=== PATIENT | male | born 1965 | race Caucasian/White ===

== ENCOUNTER 2021-12-02 07:02 | Inpatient (IN) | payer BC ==
[2021-12-02] MEDS ORDERED: NITROGLYCERIN SL TABS 0.4 MG TAB SUBLINGUAL PRN ×2 (07:07→09:27)
[2021-12-02] MEDS ORDERED: HEPARIN SODIUM 1,000 UN/ML (10ML VL) IV PRN (07:09)
[2021-12-02] MEDS ORDERED: HEPARIN SODIUM 1,000 UN/ML (10ML VL) IV ONE (07:09)
--- NOTE | 2021-12-02 07:11 | ED ---
Chest Pain HPI - General Stated Complaint: STEMI Time Seen by Provider: 12/02/21 07:07 Source: EMS Mode of arrival: EMS - History of Present Illness Initial Comments: This patient is a 56-year-old man who presents by ambulance with complaint of chest tightness. Patient states that he had noted symptoms a little over an hour ago. When the symptoms persisted they called the ambulance. EMS had called with concerns about STEMI and a transmitted an ECG by telemetry. On receiving the ECG the Hydroponics Worker was activated. Patient states that chest pain woke him. It is a tightness. It was initially moderately severe but after one sublingual nitroglycerin by EMS the pain is down to 2 out of 10. He has a little bit of nausea. MD Complaint: chest pain -: hour(s) Onset: awoke with symptoms Pain Location: left chest Severity: moderate Severity scale (1-10): 2 Quality: tightness Consistency: constant, now resolved (Partially) Improves With: nitroglycerin Anginal Symptoms: nausea Treatments Prior to Arrival: aspirin, nitroglycerin, oxygen - Related Data Allergies Allergy/AdvReac Type Severity Reaction Status Date / Time Unable to Assess Allergy Verified 12/02/21 07:12 Review of Systems ROS Statement: Those systems with pertinent positive or pertinent negative responses have been documented in the HPI. ROS Other: All systems not noted in ROS Statement are negative. Constitutional: Denies: fever, chills Respiratory: Reports: dyspnea. Denies: cough Cardiovascular: Reports: chest pain. Denies: palpitations, edema, syncope Gastrointestinal: Reports: nausea. Denies: abdominal pain, vomiting, diarrhea Genitourinary: Denies: dysuria, hematuria Musculoskeletal: Denies: back pain Skin: Denies: rash Neurological: Denies: headache, weakness EKG Findings - EKG Comments: EKG Findings:: Underlying rhythm appears to be junctional alternating with sinus, the rate initially [address] elevations in the inferior leads with reciprocal changes laterally. - EKG Results: EKG: interpreted by ERMD, normal axis - ME, Pacemaker, Normal: Myocardial infarction: inferior ME (acute or recent) Past Medical History Past Medical History: Hypertension History of Any Multi-Drug Resistant Organisms: None Reported Past Surgical History: No Surgical Hx Reported Past Psychological History: No Psychological Hx Reported Smoking Status: Current every day smoker Past Alcohol Use History: Occasional Past Drug Use History: Marijuana General Exam General appearance: alert, in no apparent distress Head exam: Present: atraumatic, normocephalic Eye exam: Present: normal appearance. Absent: scleral icterus, conjunctival injection ENT exam: Present: normal oropharynx Neck exam: Present: normal inspection Respiratory exam: Present: normal lung sounds bilaterally. Absent: respiratory distress, wheezes, rales, rhonchi, stridor Cardiovascular Exam: Present: regular rate, normal rhythm, normal heart sounds. Absent: systolic murmur, diastolic murmur, rubs, gallop GI/Abdominal exam: Present: soft, distended, tenderness, guarding, rebound, rigid, mass Extremities exam: Present: normal inspection, normal capillary refill. Absent: pedal edema, calf tenderness Back exam: Present: normal inspection Neurological exam: Present: alert Skin exam: Present: warm, dry, intact, normal color. Absent: rash Course Vital Signs 12/02/21 12/02/21 12/02/21 07:03 07:25 07:45 Temperature 97.8 F Pulse Rate 87 74 74 Respiratory 18 18 18 Rate Blood Pressure 154/90 107/74 104/67 O2 Sat by Pulse 97 97 96 Oximetry Chest Pain MDM - MDM Patient's 56-year-old man with acute onset of chest tightness this morning. Patient appears to be having ST elevation ME. The metallurgy laboratory technician was activated based on the EMS telemetry ECG. Case was then discussed with Dr. Lazo who is on- call, followed by Dr. Morton. The patient is seen and evaluated, orders are entered. Case discussed with hospitalist team for admission. Critical Care Time Critical Care Time: Yes (30 minutes) Disposition Clinical Impression: ST elevation myocardial infarction (STEMI) Disposition: ADMITTED IP TO THIS HOSP Condition: Critical Is patient prescribed a controlled substance at d/c from ED?: No
[2021-12-02] MEDS: HEPARIN SOD,PORK IN 0.45% NACL 25,000 UNIT in 0.45% NACL 1 250ML.BAG IV SCH ×2 (07:18→19:25)
[2021-12-02] MEDS ORDERED: ATORVASTATIN 80 MG TAB PO STA (07:23)
--- NOTE | 2021-12-02 07:36 | XR ---
EXAMINATION TYPE: XR chest 1V portable DATE OF EXAM: 12/02/2021 COMPARISON: NONE HISTORY: Chest pain TECHNIQUE: Single frontal view of the chest is obtained. FINDINGS: There is no pleural effusion or pneumothorax seen. Technique is apical lordotic. Density a buts the right heart border, possible obscured medial aspect of the right hemidiaphragm. The cardiac silhouette size is enlarged. There are overlying artifacts. The osseous structures are intact. IMPRESSION: Suspect cardiomegaly, difficult to exclude basilar airspace disease versus atelectasis, follow-up PA and lateral chest x-ray suggested when patient is stable.
[2021-12-02 07:39] LABS: Albumin 4.2 g/dL (3.5-5.0); Magnesium 2.3 mg/dL (1.6-2.3); Potassium 3.9 mmol/L (3.5-5.1); Total Bilirubin 0.4 mg/dL (0.2-1.3); Total Protein 7.3 g/dL (6.3-8.2)
[2021-12-02 07:42] LABS: INR 0.8 (<1.2); Partial Thromboplastin Time 24.6 sec (22.0-30.0); Prothrombin Time 9.5 sec (9.0-12.0)
[2021-12-02] MEDS ORDERED: LIDOCAINE 1% INJ 10MG/ML (20 ML MDV) SQ ONE (07:44)
[2021-12-02] MEDS ORDERED: MIDAZOLAM 2 MG/2 ML VIAL IV ONE (07:44)
[2021-12-02] MEDS ORDERED: CLOPIDOGREL 75 MG TAB ONE (07:50)
[2021-12-02] MEDS ORDERED: HEPARIN SODIUM 1,000 UN/ML (10ML VL) ONE (07:52)
[2021-12-02 07:56] LABS: Basophils # (A) 0.1 k/uL (0-0.2); Basophils % (A) 1 %; Eosinophils # (A) 0.1 k/uL (0-0.7); Eosinophils % (A) 2 %; HGB 16.2 gm/dL (13.0-17.5); Lymphocytes # (A) 2.3 k/uL (1.0-4.8); Lymphocytes % (A) 30 %; MCH 31.6 pg (25.0-35.0); MCHC 33.1 g/dL (31.0-37.0); MCV 95.2 fL (80.0-100.0); Mean Platelet Volume 8.5; Monocytes # (A) 0.4 k/uL (0-1.0); Monocytes % (A) 5 %; Neutrophils # (A) 4.6 k/uL (1.3-7.7); Neutrophils % (A) 60 %; Platelet Count 245 k/uL (150-450); RBC 5.15 m/uL (4.30-5.90); RDW 13.3 % (11.5-15.5); WBC 7.6 k/uL (3.8-10.6)
[2021-12-02] MEDS ORDERED: CLOPIDOGREL 75 MG TAB PO ONE (08:07)
[2021-12-02] MEDS ORDERED: IV FLUID CONTINUATION 500 ML IV ONE (08:08)
[2021-12-02] MEDS: fentaNYL (PF) 50 MCG/ML 2 ML AMP IV ONE ×2 (08:08→08:26)
[2021-12-02] MEDS ORDERED: fentaNYL (PF) 50 MCG/ML 2 ML AMP ONE (08:09)
[2021-12-02] MEDS ORDERED: IOPAMIDOL-370 125ML BTL INJ ONE ×2 (08:19→08:56)
[2021-12-02 08:59] LABS: O2 Sat Blood Gas 63.3 %; O2 Sat Blood Gas 97.5 %
[2021-12-02 09:08] LABS: O2 Sat Blood Gas 65.7 %
[2021-12-02] MEDS ORDERED: ATROPINE SULFATE 0.1 MG/ML 10ML SYRINGE IV PRN (09:27)
[2021-12-02] MEDS ORDERED: RX INFO: IV CONTRAST WAS GIVEN 1 EACH MISC MISCELLANE PRN (09:27)
[2021-12-02] MEDS ORDERED: ZOLPIDEM 5 MG TAB PO PRN (09:27)
[2021-12-02] MEDS ORDERED: MAG HYDROX/AL HYDROX/SIMETH 30 ML CUP PO PRN (09:27)
--- NOTE | 2021-12-02 09:27 | P.PRCINT ---
Percutaneous Coronary Int. - Percutaneous Coronary Intervention Percutaneous Coronary Intervention: PROCEDURES PERFORMED: Left coronary angiography, PCI circumflex with a 4.0 x 15mm Xience BRENTON, post dilated with a 5.0 x 12, right heart catheterization INDICATION: Inferior STEMI HISTORY: Patient is a 56-year-old male with history of tobacco abuse and questionable septal defect as well as hypertension and hyperlipidemia who presented with chest pain which woke him out of his sleep at approximately 3 AM. He had a diagnostic heart catheterization performed which showed a dominant circumflex 100% occluded. I was therefore asked to perform PCI. CONSENT:I have discussed the risks, benefits and alternative therapies for the above-mentioned procedure and for both sedation/analgesia as well as necessary blood product administration, if indicated, as they pertain to this patient. The patient has indicated understanding and acceptance of the risks and procedures discussed. PROCEDURE: After the risks, benefits and alternatives of the above mentioned procedure explained in detail with the patient, informed consent was obtained. Patient had been taken to the catheterization lab and prepped and draped in usual fashion. A 6-Estonian sheath had already been placed in the right femoral artery. A 6-Estonian CLS 3.5 guide was used to engage the left main. Heparin was given for ACT greater than 250. A 0.014 BMW wire was advanced until the distal circumflex. The lesion was predilated with a 2.5 x 12 mm balloon. Next a 4.0 x 15 mm Xience BRENTON was placed. This was postdilated with a 5.0 x 12 mm balloon. Preintervention there is CYNDEE 0 flow and 100% stenosis and post intervention there was CYNDEE-3 flow with 0% stenosis. The wire was pulled and final angiograms were performed. A 6-Estonian pigtail was placed in the left ventricle and pressure measurements were obtained. Pullback was performed. Patient was noted to have some hypotension despite re-zeroing of equipment. Therefore the decision was made to perform a right heart catheterization. Using ultrasound guidance and micropuncture technique and a 8-Estonian sheath was placed in the right femoral vein. A 7-Estonian Ripley-Latrell catheter was advanced of the right atrium, right ventricle, pulmonary artery and pulmonary capillary wedge pressure with pressure measurements obtained. We attempted thermodilution however variable results which did not appear accurate. Oxygen saturations were drawn in the pulmonary artery, right atrium and femoral artery for Jackeline calculations. There was noted a somewhat loose connection in the tubing system and after adjustment pressure appeared to improve. Low pressures may have been a result of equipment however also noted to improvement with IV fluids. A right femoral angiogram showed adequate anatomy for closure and a 6-Estonian Angio-Seal was placed with hemostasis achieved. The patient tolerated the procedure well. Patient was transported back to the post catheterization holding area in stable condition. Conscious Sedation: Patient was monitored under the direct supervision of vision of myself for conscious sedation using Versed and fentanyl for a total duration of 61 minutes RIGHT HEART CATHETERIZATION: RA: 21 RV: 36/12 PA: 43/29 PCWP: 29 (may have been inaccurate from tubing connection) LV: 100/10, LVEDP 17 RA oxygen sat: 66% PA oxygen sat: 63% FA oxygen sat: 98% Cardiac outpt: 5.01 L/min Cardiac index: 2.17 L/min/m2 SELECTIVE CORONARY ARTERIOGRAPHY: LEFT MAIN: The left main is a large caliber vessel which bifurcates into the LAD and circumflex. There is no significant stenosis. LEFT ANTERIOR DESCENDING CORONARY ARTERY: LAD is a large caliber vessel which wraps around to the apex. There are minimal luminal irregularities. LEFT CIRCUMFLEX CORONARY ARTERY: Left circumflex is a large caliber vessel dominant vessel which supplies the PDA. There is a 100% stenosis after a moderate caliber OM1 and otherwise mild 30% stenosis of the PDA. RIGHT CORONARY ARTERY: The right coronary artery was not imaged however noted to be small to moderate caliber and nondominant. FINAL IMPRESSION: 1. CAD as described above with successful PCI dominant circumflex with a 4.0 x 15mm Xience BRENTON, post dilated with a 5.0 x 12 2. Hypotension noted during case, improved after case with some IV fluids. May have been measurement error related to tubing connection however corresponded closely with cuff pressure. 3. Low normal cardiac output. cardiac index PLAN: 1. Aggressive risk factor modification per most recent ACC/AHA guidelines. 2. Continue dual antiplatelets for 12 months.
--- NOTE | 2021-12-02 09:36 | P.CRDCN ---
History of Present Illness Consult date: 12/02/21 History of present illness: 56-year-old gentleman with history of dyslipidemia and smoking presented to hospital with sudden onset chest pain. His chest discomfort developed around 3:00 this morning. Progressively got worse. Moderate to severe intensity precordial 8 out of 10 intensity. He had an EKG in the field and EMS faxed it to ER and there was acute inferior wall myocardial infarction following which STEMI team was alerted. Patient came to the ER around 7:00 around 705 he had an EKG that confirmed the acute inferior wall myocardial infarction and I saw the patient in the emergency room very expeditiously at 707. I advised the patient to undergo emergent cardiac catheterization he was hemodynamically stable was in atrial fibrillation with somewhat of a slow ventricular rate and had evidence of inferior wall myocardial infarction. I gave him IV fluids. Continued him on IV heparin and advised him to go to the dairy laboratory technician. Patient will undergo emergent cardiac catheterization and primary angioplasty . Constitutional: Denies chills. Denies fever. Eyes: Denies blurred vision. Denies pain. Ears, nose, mouth and throat: Denies headache. Denies sore throat. Cardiovascular: Significant for chest pain Denies shortness of breath. Respiratory: Denies cough. Gastrointestinal: Denies abdominal pain. Denies diarrhea. Denies nausea. Denies vomiting. Musculoskeletal: Denies myalgias. Integumentary: Denies pruritus. Denies rash. Neurological: Denies numbness. Denies weakness. Psychiatric: Denies anxiety. Denies depression. Endocrine: Denies fatigue. Denies weight change. Genitourinary: Denies burning, hematuria, frequency of urination. Hematological: No anemia or excess bleeding. General: The patient is awake and alert, in no distress, and does not appear acutely ill. Skin: Skin is warm and dry and no rashes or lesions are noted. Eye: Pupils are equal, round and reactive to light, extra-ocular movements are intact; there is normal conjunctiva bilaterally. Ears, nose, mouth and throat: There are moist mucous membranes and no oral lesions. Neck: The neck is supple, there is no tenderness or JVD. Cardiovascular: There is a regular rate and rhythm. No murmur, rub or gallop is appreciated. Respiratory: Lungs are clear to auscultation, respirations are non-labored, breath sounds are equal. Gastrointestinal: Soft, non-distended, non-tender abdomen without masses or organomegaly noted. There is no rebound or guarding present. Bowel sounds are unremarkable. Back: There is no tenderness to palpation in the midline. There is no obvious deformity. Musculoskeletal: Normal ROM, no tenderness, There is no pedal edema. There is no calf tenderness or swelling. Extremities: No edema. Vascular: Femoral pulse is normal. Posterior tibial pulses are normal .Dorsalis pedis is palpable. Neurological: CN II-XII intact. There are no obvious motor or sensory deficits. Speech is normal. Psychiatric: Cooperative, appropriate mood & affect, normal judgment. Assessment and plan: Acute inferior wall myocardial infarction New onset atrial fibrillation History of smoking History of dyslipidemia Plan Patient will undergo emergent cardiac catheterization and angioplasty understands risk benefits Past Medical History Past Medical History: Hypertension History of Any Multi-Drug Resistant Organisms: None Reported Past Surgical History: No Surgical Hx Reported Past Psychological History: No Psychological Hx Reported Smoking Status: Current every day smoker Past Alcohol Use History: Occasional Past Drug Use History: Marijuana Medications and Allergies Allergies Allergy/AdvReac Type Severity Reaction Status Date / Time Unable to Assess Allergy Verified 12/02/21 07:12 Physical Exam Vitals: Vital Signs Temp Pulse Resp BP Pulse Ox 12/02/21 07:45 74 18 104/67 96 12/02/21 07:25 74 18 107/74 97 12/02/21 07:03 97.8 F 87 18 154/90 97 Intake and Output 12/01/21 12/02/21 12/02/21 22:59 06:59 14:59 Intake Total 500 Balance 500 Intake: IV 500 Other: Weight 116.573 kg Results 12/02/21 07:18 12/02/21 07:18 Cardiac Enzymes 12/02/21 12/02/21 Range/Units 07:18 07:18 AST 27 (17-59) U/L Troponin I 0.042 H* (0.000-0.034) ng/mL Coagulation 12/02/21 Range/Units 07:18 PT 9.5 (9.0-12.0) sec APTT 24.6 (22.0-30.0) sec CBC 12/02/21 Range/Units 07:18 WBC 7.6 (3.8-10.6) k/uL RBC 5.15 (4.30-5.90) m/uL Hgb 16.2 (13.0-17.5) gm/dL Hct 49.0 (39.0-53.0) % Plt Count 245 (150-450) k/uL Comprehensive Metabolic Panel 12/02/21 Range/Units 07:18 Sodium 144 (137-145) mmol/L Potassium 3.9 (3.5-5.1) mmol/L Chloride 106 (98-107) mmol/L Carbon Dioxide 27 (22-30) mmol/L BUN 20 (9-20) mg/dL Creatinine 1.22 (0.66-1.25) mg/dL Glucose 169 H (74-99) mg/dL Calcium 9.0 (8.4-10.2) mg/dL AST 27 (17-59) U/L ALT 37 (4-49) U/L Alkaline Phosphatase 77 (38-126) U/L Total Protein 7.3 (6.3-8.2) g/dL Albumin 4.2 (3.5-5.0) g/dL Current Medications Generic Name Dose Route Start Last Admin Trade Name Freq PRN Reason Stop Dose Admin Al Hydroxide/Mg Hydroxide 30 ml 12/02/21 09:27 Mag Hydrox/Al Hydrox/Simeth 30 Ml Cup PO Q4HR PRN Heartburn Aspirin 81 mg 12/03/21 09:00 Aspirin 81 Mg PO DAILY [facility] Atropine Sulfate 0.5 mg 12/02/21 09:27 Atropine Sulfate 0.1 Mg/Ml 10ml Syringe IV ONCE PRN Symptomatic Bradycardia Clopidogrel Bisulfate 75 mg 12/03/21 09:00 Clopidogrel 75 Mg Tab PO DAILY [facility] Protocol Heparin Sodium (Porcine) 0 unit 12/02/21 07:09 Heparin Sodium 1,000 Un/Ml (10ml Vl) IV PER PROTOCOL PRN Low PTT Protocol Heparin Sodium/Sodium Chloride 250 mls @ 10 mls/hr 12/02/21 07:15 12/02/21 07:18 25,000 unit/ Sodium Chloride IV 8.578 units/kg/hr .Q24H RAHEEL 10 mls/hr Administration Protocol 8.578 UNITS/KG/HR Sodium Chloride 1,000 ml/ IV 1,000 mls @ 116.573 mls/hr 12/02/21 09:30 Solution IV .Q8H35M RAHEEL 1 ML/KG/HR Metoprolol Tartrate 25 mg 12/02/21 21:00 Metoprolol Tartrate 25 Mg Tab PO BID RAHEEL Miscellaneous Information 1 each 12/02/21 09:27 Rx Info: Iv Contrast Was Given 1 Each Misc MISCELLANE 12/04/21 09:27 DAILY PRN Per Protocol Nitroglycerin 0.4 mg 12/02/21 07:07 Nitroglycerin Sl Tabs 0.4 Mg Tab SUBLINGUAL Q5M PRN Chest Pain Nitroglycerin 0.4 mg 12/02/21 09:27 Nitroglycerin Sl Tabs 0.4 Mg Tab SUBLINGUAL Q5M PRN Chest Pain Zolpidem Tartrate 5 mg 12/02/21 09:27 Zolpidem 5 Mg Tab PO HS PRN Insomnia Intake and Output 12/01/21 12/02/21 12/02/21 22:59 06:59 14:59 Intake Total 500 Balance 500 Intake: IV 500 Other: Weight 116.573 kg Patient Weight 12/03/21 06:59 Weight 116.573 kg 12/02/21 07:18 12/02/21 07:18
[2021-12-02 09:50] LABS: Glucose,Whole Blood 118 mg/dL (75-99)
--- NOTE | 2021-12-02 10:23 | CC ---
CARDIAC CATHETERIZATION REPORT INDICATION: Acute inferior wall myocardial infarction. This is a 56-year-old gentleman who presented to hospital with acute inferior wall [place] and was advised to undergo emergent cardiac catheterization and primary angioplasty. His EKG in the emergency room was performed at 7:05. I saw the patient somewhere around 7:07 to 7:10 and proceeded to perform cardiac catheterization on him. His vascular access was obtained and cardiac catheterization was finished in 11 minutes as soon as the helper animal laboratory was ready for me. PROCEDURE NOTE: After obtaining informed consent, left heart catheterization and coronary angiogram were performed via the right femoral artery using standard Niesha catheters. Patient tolerated the procedure well without any obvious immediate complications. The left coronary artery was engaged using a size 3.[address] Morton. We could not engage the left with a size 4 catheter. Right coronary artery was engaged using a size 4 Niesha catheter and left ventricular end-diastolic pressures were obtained with a pigtail catheter. Moderate conscious sedation was given and total sedation time was 11 minutes. FINDINGS: HEMODYNAMICS: Left ventricular end-diastolic pressure is 18 mm. There is no significant gradient across the aortic valve. LEFT VENTRICULOGRAM: Left ventriculogram was not performed. ANGIOGRAPHIC DATA: Left main coronary artery. Left main coronary artery is a short vessel and free of stenosis. It divides into left anterior descending coronary artery and circumflex coronary artery. LAD and its branches are free of significant stenosis. Circumflex coronary artery appears totally occluded past branch. Right coronary artery is a small nondominant vessel and is free of significant disease. CONCLUSIONS: Acutely occluded [place] circumflex coronary artery which is responsible for the acute inferoposterior wall myocardial infarction. PLAN: Patient will undergo angioplasty with stent placement of the same. Need fluids and will avoid nitrates because of possible RV infarct. MMODL / IJN: [id number] /
[2021-12-02] MEDS ORDERED: ONDANSETRON 4 MG/2 ML VIAL IVP PRN (12:10)
[2021-12-02] MEDS ORDERED: NALOXONE 0.4 MG/ML 1 ML VIAL IV PRN (12:10)
[2021-12-02] MEDS ORDERED: ALPRAZolam 0.25 MG TAB PO PRN (12:10)
[2021-12-02] MEDS ORDERED: MELATONIN 3 MG TABLET PO PRN (12:10)
[2021-12-02] MEDS ORDERED: ACETAMINOPHEN TAB 325 MG TAB PO PRN (12:10)
[2021-12-02] MEDS ORDERED: HYDROcodone/APAP 5-325MG 1 EACH TAB PO PRN (12:10)
--- NOTE | 2021-12-02 12:15 | P.HPIM ---
History of Present Illness H&P Date: 12/02/21 Chief Complaint: chest pain Patient is a 56 yo CM with a hx of HTN, Tobacco abuse, and obesity who presented to the ED with chest pain. He was found to have inferior wall STEMI. He underwent emergent cardiac cath with a stent to circ. He was also found to have A Fib. Patient seen at bedside. Currently chest pain free. No shortness of breath, no nausea and tolerating a diet well Woke up and was unable to catch his breath and shoulder/chest had a heavy weight, willy cold but was very diaphoretic. Was at home with chest pain about 1 hour before calling EMS. No recent illness. No hx of COVID in the past. No prior hx of A fib. Had a septal defect at which corrected by age 14. Pertinent positives and negatives as discussed in HPI, a complete review of systems was performed and all other systems are negative. General: non toxic, no distress, appears at stated age Derm: warm, dry Head: atraumatic, normocephalic, symmetric Eyes: EOMI, no lid lag, anicteric sclera, pupils equal round reactive to light ENT: Nose and ears atraumatic, no thrush, no pharyngeal erythema Neck: No thyromegaly, no cervical lymphadenopathy, trachea midline, supple Mouth: no lip lesion, mucus membranes moist Cardiovascular: S1S2 reg, no murmur, positive posterior tibial pulse bilateral, no edema, capillary refill less than 2 seconds Lungs: clear to ascultation bilateral, no ronchi, no rales, no wheeze, no accessory muscle use Abdominal: soft, nontender to palpation, no guarding, no appreciable organomegaly, normal bowel sounds Ext: no gross muscle atrophy, muscle strength muscle strength 5 out of 5 in all 4 extremities, no contractures Neuro: CN II-XI grossly intact, light touch intact all 4 extremities, finger to nose within normal limits, Psych: Alert, oriented, appropriate affect Assessment/Plan: STEMI s/p stent to the CIR P. A. fib - plavix, ASA, lopressor - hepatin gtt planned 8 hours after sheeth removed. - check lipid profile and A1C HTN, controlled - BB HDL - Liptior Morbid obesity BMI 36.9 - outpatient structured weight loss Tobacco abuse - structured outpatient weight loss The patient is admitted with an anticipated greater than 2 midnight stay for evaluation of STEMI. CODE STATUS:full DVT prophylaxis: Heparin Discussed with: patient, nursing Anticipated discharge date: [address]: home A total of 65 minutes was spent on the care of this complex patient more than 50% of the time was spent in counseling and care coordination. Past Medical History Past Medical History: Hyperlipidemia, Hypertension (white coat HTN) Additional Past Medical History / Comment(s): Hx cardiac septal defect as a chi ld History of Any Multi-Drug Resistant Organisms: None Reported Additional Past Surgical History / Comment(s): vocal cord surgery Past Psychological History: No Psychological Hx Reported Smoking Status: Current every day smoker (1 ppd) Past Alcohol Use History: Occasional Past Drug Use History: Marijuana - Past Family History mother Family Medical History: Myocardial Infarction (HI) (HI over the age of 70) Medications and Allergies Home Medications Medication Instructions Recorded Confirmed Type Atorvastatin [Lipitor] 10 mg PO DAILY@0200 12/02/21 12/02/21 History Nebivolol HCl [Bystolic] 10 mg PO DAILY@0200 12/02/21 12/02/21 History Allergies Allergy/AdvReac Type Severity Reaction Status Date / Time codeine AdvReac Abdominal Verified 12/02/21 09:43 Pain Physical Exam Osteopathic Statement: *. No significant issues noted on an osteopathic structu ral exam other than those noted in the History and Physical/Consult. Vitals: Vital Signs Temp Pulse Resp BP Pulse Ox 12/02/21 10:00 64 10 L 113/95 98 12/02/21 09:50 65 12 97 12/02/21 09:44 96.6 F L 64 13 96 12/02/21 07:45 74 18 104/67 96 12/02/21 07:25 74 18 107/74 97 12/02/21 07:03 97.8 F 87 18 154/90 97 Intake and Output 12/01/21 12/02/21 12/02/21 22:59 06:59 14:59 Intake Total 570 Output Total 0 Balance 570 Intake: IV 570 0.9 50 R groin sheath 0.9 20 Output: Urine 0 Other: # Voids 0 Weight 116.573 kg Results CBC & Chem 7: 12/02/21 07:18 12/02/21 07:18 Labs: Abnormal Lab Results - Last 24 Hours (Table) 12/02/21 12/02/21 12/02/21 Range/Units 07:18 07:18 09:49 Glucose 169 H (74-99) mg/dL POC Glucose (mg/dL) 118 H (75-99) mg/dL Troponin I 0.042 H* (0.000-0.034) ng/mL
[2021-12-02] MEDS: SODIUM CHLORIDE 0.9% 1,000 ML in EMPTY BAG 1 BAG IV SCH (12:19)
--- NOTE | 2021-12-02 13:59 | ECHOF ---
Referral Reason:stemi MEASUREMENTS -------- HEIGHT: 152.4 cm WEIGHT: 116.6 kg BP: RVIDd: 3.4 cm (< 3.3) IVSd: 1.6 cm (0.6 - 1.1) LVIDd: 4.9 cm (3.9 - 5.3) LVPWd: 1.4 cm (0.6 - 1.1) IVSs: 1.5 cm LVIDs: 4.0 cm LVPWs: 1.5 cm LA Diam: 4.0 cm (2.7 - 3.8) MV EXCURSION: 23.861 mm (> 18.000) MV EF SLOPE: 118 mm/s (70 - 150) EPSS: 1.1 cm MV E Jakub: 0.63 m/s MV DecT: 181 ms MV A Jakub: 0.76 m/s MV E/A Ratio: 0.83 RAP: 5.00 mmHg RVSP: 18.70 mmHg FINDINGS -------- Sinus rhythm. This was a techncally difficult study with suboptimal views, , Definity utilized for enhancement of i mages. The left ventricular size is normal. There is mild concentric left ventricular hypertrophy. Overa ll left ventricular systolic function is mild-moderately impaired with, an EF between 40 - 45 %. In ferior Hypokinesis Posterior Hypokinesis. The right ventricle is normal in size. The left atrial size is normal. The right atrial size is normal. Lumason used There is mild aortic valve sclerosis. There is no evidence of aortic regurgitation. Mild mitral regurgitation is present. Mild tricuspid regurgitation present. Right ventricular systolic pressure is normal at < 35 mmHg. The pulmonic valve was not well visualized. Echo free space indicative of a pericardial fat pad. CONCLUSIONS -------- 1. This was a techncally difficult study with suboptimal views, , Definity utilized for enhancement o f images. 2. The left ventricular size is normal. 3. There is mild concentric left ventricular hypertrophy. 4. Overall left ventricular systolic function is mild-moderately impaired with, an EF between 40 - 45 %. 5. Inferior Hypokinesis 6. Posterior Hypokinesis. 7. The right ventricle is normal in size. 8. The left atrial size is normal. 9. The right atrial size is normal. 10. Lumason used 11. There is mild aortic valve sclerosis. 12. Mild mitral regurgitation is present. 13. Mild tricuspid regurgitation present. 14. The pulmonic valve was not well visualized. 15. Echo free space indicative of a pericardial fat pad. HYDROELECTRIC MACHINERY MECHANIC HELPER: Anh Suazo RDCS
[2021-12-02 18:16] LABS: Glucose,Whole Blood 123 mg/dL (75-99)
[2021-12-02] MEDS: METOPROLOL TARTRATE 25 MG TAB PO SCH (20:50)
[2021-12-03] MEDS: NICOTINE 21MG/24HR PATCH TRANSDERM SCH (06:21)
[2021-12-03] MEDS: SODIUM CHLORIDE 0.9% 1,000 ML in EMPTY BAG 1 BAG IV SCH ×2 (07:53→07:54)
--- NOTE | 2021-12-03 08:00 | P.PN ---
Subjective Progress Note Date: 12/03/21 Principal diagnosis: Acute coronary syndrome The patient is a pleasant 56-year-old gentleman with a smoking who was admitted to the hospital with a chest discomfort and was diagnosed with acute coronary syndrome. He underwent an emergent heart catheterization that revealed occluded left circumflex which was stented. He was seen this morning. He is asymptomatic. He reports no pain in the chest or shortness of breath. He has been maintaining normal sinus mechanism with he modynamically he is stable. The right groin is soft and nontender and without any bruises. He is on dual antiplatelet therapy along with high intensity statin. The patient can be transferred to the selective unit for potential discharge home in the next 24-48 hours. Objective - Vital Signs Vital signs: Vital Signs Temp 98 F 12/03/21 04:30 Pulse 63 12/03/21 07:00 Resp 13 12/03/21 07:00 BP 119/89 12/03/21 07:00 Pulse Ox 96 12/03/21 05:30 Intake & Output 12/02/21 12/03/21 12/03/21 18:59 06:59 18:59 Intake Total 1456.5 2415.5 198.344 Output Total 750 1175 300 Balance 706.5 1240.5 -101.656 Weight 116.573 kg 120.9 kg Intake: IV 1432 1392 116 0.9 912 1392 116 R groin sheath 0.9 20 Intake, IV Titration 24.5 63.5 82.344 Amount Heparin Sod,Pork in 0.45% 24.5 63.5 82.344 NaCl 25,000 unit In 0.45 % NaCl 1 250ml.bag @ 8. 578 UNITS/KG/HR 10 mls/hr IV .Q24H [facility] Rx#: [id number] Oral 960 Output: Urine 750 1175 300 Other: Voiding Method Urinal Urinal # Voids 0 - Constitutional General appearance: Present: no acute distress - Respiratory Respiratory: bilateral: diminished - Cardiovascular Rhythm: regular - Labs CBC & Chem 7: 12/02/21 07:18 12/02/21 07:18 Labs: Abnormal Lab Results - Last 24 Hours (Table) 12/02/21 12/02/21 12/02/21 Range/Units 07:18 09:49 18:13 POC Glucose (mg/dL) 118 H 123 H (75-99) mg/dL Troponin I 0.042 H* (0.000-0.034) ng/mL Assessment and Plan Assessment: Assessment #1 acute coronary syndrome #2 status post PCI of the LCx #3 significant history of smoking Plan #1 continue the current medical regimen including dual antiplatelet therapy along with high intensity statin #2 follow-up on the echocardiogram #3 possible discharge in the next 24
[2021-12-03 09:09] LABS: Basophils % (A) 1 %; Eosinophils # (A) 0.1 k/uL (0-0.7); Eosinophils % (A) 1 %; HCT 42.1 % (39.0-53.0); HGB 13.9 gm/dL (13.0-17.5); Lymphocytes # (A) 2.3 k/uL (1.0-4.8); Lymphocytes % (A) 32 %; MCH 31.9 pg (25.0-35.0); MCV 96.8 fL (80.0-100.0); Mean Platelet Volume 8.5; Monocytes # (A) 0.4 k/uL (0-1.0); Monocytes % (A) 5 %; Neutrophils # (A) 4.1 k/uL (1.3-7.7); Neutrophils % (A) 58 %; Platelet Count 195 k/uL (150-450); RBC 4.35 m/uL (4.30-5.90); RDW 13.4 % (11.5-15.5)
[2021-12-03 09:24] LABS: INR 0.9 (<1.2); Partial Thromboplastin Time 23.4 sec (22.0-30.0); Prothrombin Time 9.7 sec (9.0-12.0)
[2021-12-03 09:36] LABS: African American GFR (CKD) >90 (>60 ml/min/1.73 sqM); Non-African American GFR(CKD) >90 (>60 ml/min/1.73 sqM)
[2021-12-03] MEDS: ATORVASTATIN 80 MG TAB PO SCH (09:37)
[2021-12-03] MEDS: ASPIRIN 81 MG PO SCH (09:37)
[2021-12-03] MEDS: CLOPIDOGREL 75 MG TAB PO SCH (09:37)
[2021-12-03] MEDS: METOPROLOL TARTRATE 25 MG TAB PO SCH ×2 (09:37→20:25)
--- NOTE | 2021-12-03 12:27 | P.PN ---
Subjective Progress Note Date: 12/03/21 Principal diagnosis: Chest Pain Patient is a 56 yo CM with a hx of HTN, Tobacco abuse, and obesity who presented to the ED with chest pain. He was found to have inferior wall STEMI. He underwent emergent cardiac cath with a stent to circ. He was also found to have A Fib. His echo showed EF 45%. Patient seen and examined at bedside. Chest pain free, no nausea, no vomiting, no shortness of breath General: non toxic, no distress, appears at stated age, obese Derm: warm, dry Head: atraumatic, normocephalic, symmetric Eyes: EOMI, no lid lag, anicteric sclera Mouth: no lip lesion, mucus membranes moist Cardiovascular: S1S2 reg, no murmur, positive posterior tibial pulse bilateral, Lungs: CTA bilateral, no rhonchi, no rales , no accessory muscle use Abdominal: soft, nontender to palpation, no guarding, no appreciable organomegaly Ext: no gross muscle atrophy, no edema, no contractures Neuro: CN II-XI grossly intact, no focal neuro deficits Psych: Alert, oriented, appropriate affect Assessment/Plan: STEMI s/p stent to the Cir P. A. fib Ischemic Cardiomyopathy EF 45% - plavix, ASA, lopressor, lipitor - start losartan - Await lipid profile and A1C - cardio recs HTN, controlled - BB adn losartan HLD - Liptior Morbid obesity BMI 36.9 - outpatient structured weight loss Tobacco abuse - structured outpatient weight loss Discussed with: patient, nursing Anticipated discharge date: in AM Anticipated discharge place: home A total of 25 minutes was spent on the care of this complex patient more than 50% of the time was spent in counseling and care coordination. Objective - Vital Signs Vital signs: Vital Signs Temp 97.3 F L 12/03/21 10:12 Pulse 54 L 12/03/21 10:12 Resp 20 12/03/21 10:12 BP 136/98 12/03/21 10:12 Pulse Ox 98 12/03/21 10:12 Intake & Output 12/02/21 12/03/21 12/03/21 18:59 06:59 18:59 Intake Total 1456.5 2415.5 218.344 Output Total 750 1175 300 Balance 706.5 1240.5 -81.656 Weight 116.573 kg 120.9 kg Intake: IV 1432 1392 136 0.9 912 1392 116 Invasive Line 1 10 Invasive Line 2 10 R groin sheath 0.9 20 Intake, IV Titration 24.5 63.5 82.344 Amount Heparin Sod,Pork in 0.45% 24.5 63.5 82.344 NaCl 25,000 unit In 0.45 % NaCl 1 250ml.bag @ 8. 578 UNITS/KG/HR 10 mls/hr IV .Q24H [facility] Rx#: [id number] Oral 960 Output: Urine 750 1175 300 Other: Voiding Method Urinal Urinal Urinal # Voids 0 - Labs CBC & Chem 7: 12/03/21 08:39 12/03/21 08:39 Labs: Abnormal Lab Results - Last 24 Hours (Table) 12/02/21 Range/Units 18:13 POC Glucose (mg/dL) 123 H (75-99) mg/dL
[2021-12-03 14:50] LABS: Chol/HDL Ratio 5.02 Ratio; LDL Cholesterol,Calculated 68.5 mg/dL (0.0-131.0)
[2021-12-03] MEDS: LOSARTAN 25 MG TAB PO SCH (16:25)
[2021-12-03 18:48] VITALS: BMI 38.2
[2021-12-03 19:27] VITALS: RESP 18
[2021-12-04] MEDS: METOPROLOL TARTRATE 25 MG TAB PO SCH (08:37)
[2021-12-04] MEDS: ASPIRIN 81 MG PO SCH (08:37)
[2021-12-04] MEDS: LOSARTAN 25 MG TAB PO SCH (08:37)
[2021-12-04] MEDS: ATORVASTATIN 80 MG TAB PO SCH (08:38)
[2021-12-04] MEDS: NICOTINE 21MG/24HR PATCH TRANSDERM SCH (08:38)
[2021-12-04] MEDS: CLOPIDOGREL 75 MG TAB PO SCH (08:38)
[2021-12-04 10:55] VITALS: BP 134/88; PULSE 69; TEMP 98.2
--- NOTE | 2021-12-04 12:12 | P.PN ---
Subjective Progress Note Date: 12/04/21 HISTORY OF PRESENT ILLNESS: Patient is status post cardiac catheterization with PCI to the circumflex. Patient examined this morning at the bedside. Patient denies chest pain or pre ssure. He denies shortness of breath. Vital signs are stable. Patient is hoping to be discharged home today. Echocardiogram completed revealing ejection fraction 40-45%, inferior hypokinesis, posterior hypokinesis, mild mitral regurgitation, and mild tricuspid regurgitation. PHYSICAL EXAM: VITAL SIGNS: Reviewed. GENERAL: Well-developed in no acute distress. NECK: Supple. No JVD or thyromegaly LUNGS: Respirations even and unlabored. Lungs essentially clear to auscultation bilaterally. HEART: Regular rate and rhythm. S1 and S2 heard. EXTREMITIES: Normal range of motion. No clubbing or cyanosis. Peripheral pulses intact. No lower extremity edema. Groin soft with no hematoma noted. ASSESSMENT: STEMI, s/p PCI to circumflex Ischemic cardiomyopathy Hypertension Nicotine dependence PLAN: Continue current cardiac medications Patient is stable for discharge home today Follow up outpatient with Dr. Lazo Nurse practitioner note has been reviewed by physician. Signing provider agrees with the documented findings, assessment, and plan of care. Objective - Vital Signs Vital signs: Vital Signs Temp 98.2 F 12/04/21 08:00 Pulse 69 12/04/21 08:00 Resp 18 12/04/21 08:00 BP 134/88 12/04/21 08:00 Pulse Ox 96 12/04/21 08:00 Intake & Output 12/03/21 12/04/21 12/04/21 18:59 06:59 18:59 Intake Total 1778.344 598 Output Total 1250 Balance 528.344 598 Weight 120.9 kg 120.9 kg Intake: IV 136 0.9 116 Invasive Line 1 10 Invasive Line 2 10 Intake, IV Titration 82.344 Amount Heparin Sod,Pork in 0.45% 82.344 NaCl 25,000 unit In 0.45 % NaCl 1 250ml.bag @ 8. 578 UNITS/KG/HR 10 mls/hr IV .Q24H [facility] Rx#: [id number] Oral 1560 598 Output: Urine 1250 Other: Voiding Method Urinal Toilet Toilet # Voids 3 1 - Labs CBC & Chem 7: 12/03/21 08:39 01/24/22 08:39 Labs: Abnormal Lab Results - Last 24 Hours (Table) 12/03/21 12/03/21 Range/Units 08:39 08:39 Hemoglobin A1c 6.7 H (0.0-6.0) % Triglycerides 286.00 H (0.00-149.00) mg/dL VLDL Cholesterol, Calc 57.20 H (5.00-40.00) mg/dL HDL Cholesterol 31.30 L (40.00-60.00) mg/dL
--- NOTE | 2021-12-04 18:10 | P.DS ---
Providers Date of admission: 12/02/21 07:37 Expected date of discharge: 12/04/21 Attending physician: Jewell Graves DO Consults: 12/02/21 07:07 Consult Physician Stat Consulting Provider: [facility] Consult Reason/Comments: STEMI ACTIVATION COMPLETE Do you want consulting provider notified?: Yes [facility] [place] [facility] Course: Discharge Diagnosis: Acute inferior ST segment elevated myocardial infarction status post PCI to the circumflex Single episode of A. fib prior to stenting Ischemic cardiomyopathy, EF 45% Hypertension Nicotine dependence Dyslipidemia Morbid obesity with BMI 30 6. Hospital Course: Patient is a 56 yo CM with a hx of HTN, Tobacco abuse, and obesity who presented to the ED with chest pain. He was found to have inferior wall STEMI. He underwent emergent cardiac cath with a stent to circ. He was also found to have A Fib which resolved after stenting and did not recur during his hospitalization. His echo showed EF 45%. He was also found have elevated triglycerides but the remainder of his cholesterol profile was within normal limits. His A1c was elevated at 6.7 was diagnosed with new onset diabetes. He was given an order for a glucometer as well as education on dietary changes. I've asked for him to follow with his primary regarding this. He did well after his stents. He was determined stable for discharge home. He'll follow-up with Dr. Gilbert in 1 week. He will be on aspirin, Plavix, losartan, Lipitor, and Lopressor Patient seen and examined at bedside. Doing well has been up and ambulating. All questions answered. No additional chest pain, shortness breath, lightheadedness, or dizziness. We discussed options of weight loss for diabetic control and he is in agreement with that plan. Vital signs reviewed and stable. General: non toxic, no distress, appears at stated age Derm: warm, dry Head: atraumatic, normocephalic, symmetric Eyes: EOMI, no lid lag, anicteric sclera Mouth: no lip lesion, mucus membranes moist Cardiovascular: S1S2 reg, no murmur, positive posterior tibial pulse bilateral, Lungs: CTA bilateral, no rhonchi, no rales , no accessory muscle use Abdominal: soft, nontender to palpation, no guarding, no appreciable organomegaly Ext: no gross muscle atrophy, no edema, no contractures Neuro: CN II-XI grossly intact, no focal neuro deficits Psych: Alert, oriented, appropriate affect A total of 35 minutes of time were spent preparing this complex discharge summary . Patient Condition at Discharge: Stable Plan - Discharge Summary Discharge Rx Participant: Yes New Discharge Prescriptions: New Aspirin 81 mg PO DAILY #30 tab Losartan [Cozaar] 12.5 mg PO DAILY #30 tab Atorvastatin [Lipitor] 40 mg PO DAILY #30 tablet Clopidogrel [Plavix] 75 mg PO DAILY #30 tab Metoprolol Tartrate [Lopressor] 25 mg PO BID #60 tab Discontinued Nebivolol HCl [Bystolic] 10 mg PO DAILY@0200 Atorvastatin [Lipitor] 10 mg PO DAILY@0200 Discharge Medication List Aspirin 81 mg PO DAILY #30 tab 12/04/21 [Rx] Atorvastatin [Lipitor] 40 mg PO DAILY #30 tablet 12/04/21 [Rx] Clopidogrel [Plavix] 75 mg PO DAILY #30 tab 12/04/21 [Rx] Losartan [Cozaar] 12.5 mg PO DAILY #30 tab 12/04/21 [Rx] Metoprolol Tartrate [Lopressor] 25 mg PO BID #60 tab 12/04/21 [Rx] Follow up Appointment(s)/Referral(s): Gera Coy MD [Primary Care Provider] - 12/10/21 11:20 am (Friday) Remy Lazo MD [STAFF PHYSICIAN] - 12/11/21 8:30 am (Friday) Patient Instructions/Handouts: Heart Attack (DC), Type 2 Diabetes in Adults: New Diagnosis (DC), Heart Catheterization (DC) Activity/Diet/Wound Care/Special Instructions: Activity: as tolerated Diet: heart healthy, carb consistent Special Instructions: check blood sugar 4 days a week in the morning and make a list Discharge Disposition: HOME SELF-CARE
== END 2021-12-04 13:44 | disposition home or self-care (01) | DRG 247 ==
LOC: EC 07:02 → 2SICU 07:37 → 3SCARD 12-03 09:44
PROVIDERS: ADMIT Internal Medicine; ATTEND Internal Medicine
PROC: B2111ZZ Fluoroscopy of Multiple Coronary Arteries using Low Osmolar Contrast (ICD-10-PCS; principal; 2021-12-02 07:30)
PROC: 4A023N6 Measurement of Cardiac Sampling and Pressure, Right Heart, Percutaneous Approach (ICD-10-PCS; principal; 2021-12-02 07:30)
PROC: 027034Z Dilation of Coronary Artery, One Artery with Drug-eluting Intraluminal Device, Percutaneous Approach (ICD-10-PCS; principal; 2021-12-02 07:30)
PROC: B2111ZZ Fluoroscopy of Multiple Coronary Arteries using Low Osmolar Contrast (ICD-10-PCS; 2021-12-02 07:30)
PROC: 4A023N7 Measurement of Cardiac Sampling and Pressure, Left Heart, Percutaneous Approach (ICD-10-PCS; 2021-12-02 07:30)
DX: I21.19 ST elevation (STEMI) myocardial infarction involving other coronary artery of inferior wall (principal); I95.9 Hypotension, unspecified; E11.9 Type 2 diabetes mellitus without complications; E66.01 Morbid (severe) obesity due to excess calories; I48.0 Paroxysmal atrial fibrillation; Z20.822 Contact with and (suspected) exposure to COVID-19; I25.5 Ischemic cardiomyopathy; I08.1 Rheumatic disorders of both mitral and tricuspid valves; E78.1 Pure hyperglyceridemia; Z68.38 Body mass index [BMI] 38.0-38.9, adult; I10 Essential (primary) hypertension; E78.5 Hyperlipidemia, unspecified; F17.210 Nicotine dependence, cigarettes, uncomplicated; Z71.6 Tobacco abuse counseling; Z79.899 Other long term (current) drug therapy; Z87.74 Personal history of (corrected) congenital malformations of heart and circulatory system; Z71.3 Dietary counseling and surveillance; Z82.49 Family history of ischemic heart disease and other diseases of the circulatory system
CPT/HCPCS: 36415; 71045; 80053; 80061; 82565; 82810; 83036; 83735; 84484; 85018; 85025; 85610; 85730; 87635; 93005; 93306; 93453; 96365; 96375; 99285